=== PATIENT | female | born 1985 | race Caucasian/White ===

== ENCOUNTER 2017-02-05 20:22 | Emergency (ER) | payer SELFPAY ==
[~2017-02-05] VITALS: Ht 152.4 cm; Wt 85.0 kg
[~2017-02-05 20:22] MED LIST: BACTRIM DS1 TAB PO; IBUPROFEN600 MG PO
[2017-02-05] MEDS ORDERED: BACTRIM DS1 TAB PO (21:10)
[2017-02-05] MEDS ORDERED: BENADRY2 EX (21:10)
[2017-02-05 21:15] VITALS: BP 121/74
== END 2017-02-05 21:15 | disposition home or self-care (01) | DRG 607 ==
LOC: ED 20:22
DX: S80.861A Insect bite (nonvenomous), right lower leg, initial encounter (principal); L03.115 Cellulitis of right lower limb; W57.XXXA Bitten or stung by nonvenomous insect and other nonvenomous arthropods, initial encounter

== ENCOUNTER 2018-01-20 07:54 | Emergency (ER) | payer SELFPAY ==
[~2018-01-20] VITALS: Ht 152.4 cm; Wt 90.0 kg
[~2018-01-20 07:54] MED LIST changes: +BENADRY2 EX
[2018-01-20 09:11] LABS: URINE BILIRUBIN - DIPSTICK NEGATIVE (NEGATIVE); URINE BLOOD DIPSTICK NEGATIVE (NEGATIVE); URINE COLOR YELLOW; URINE GLUCOSE - DIPSTICK NEGATIVE (NEGATIVE); URINE KETONE NEGATIVE (NEGATIVE); URINE LEUK ESTERASE NEGATIVE (NEGATIVE); URINE NITRITE - DIPSTICK NEGATIVE (Negative); URINE PROTEIN - DIPSTICK NEGATIVE (NEG-TRACE); URINE SPECIFIC GRAVITY 1.015; URINE UROBILINOGEN - DIPSTICK 0.2 E.U./dL (0.2)
[2018-01-20 09:12] LABS: ALBUMIN 3.6 g/dL (3.2-5.0); ALKALINE PHOSPHATASE 61 u/l (38-126); AMYLASE 45 u/l (30-110); ANION GAP 14 (6-22 (CALC)); BILIRUBIN, TOTAL 0.2 mg/dL (0.0-1.4); BUN 11 mg/dL (7-17); BUN/CREATININE RATIO 17 (12-20 (CALC)); CARBON DIOXIDE 25 mmol/l (22-30); CHLORIDE 107 mmol/l (95-108); CREATININE 0.6 mg/dL (0.5-1.0); GFR > 60 ML/MIN (>=60 (CALC)); GFR FOR AFR.AMER. > 60 ML/MIN (>=60 (CALC)); LIPASE 82 u/l (23-300); POTASSIUM 4.1 mmol/l (3.5-5.1); SGOT/AST 17 u/l (14-36); SGPT/ALT 33 u/l (9-52); SODIUM 142 mmol/l (137-146); TOTAL PROTEIN 6.6 g/dL (6.3-8.2)
[2018-01-20 09:12] LABS: URINE CLARITY CLEAR
[2018-01-20 09:18] LABS: HEMATOCRIT 38.2 % (37.0-47.0); HEMOGLOBIN 12.8 g/dl (12.0-16.0); IMMATURE GRANULOCYTES 0.3 % (0.0-1.0); MEAN CELL VOLUME 90.5 fL CALC (80.0-100.0); MEAN CORPUSCULAR HGB 30.3 pG CALC (26.0-32.0); MEAN CORPUSCULAR HGB CONC 33.5 g/L CALC (32.0-36.0); NEUT# 4.5 thou/uL (2.00-7.15); RED BLOOD COUNT 4.22 mill/uL (4.20-5.60); RED CELL DISTRI WIDTH 12.7 % (11.5-15.5)
[2018-01-20] MEDS ORDERED: ZOFRAN ODT4 MG PO (11:01)
[2018-01-20] MEDS ORDERED: LOMOTIL2.5 MG PO (11:02)
[2018-01-20 11:05] VITALS: BP 122/64
== END 2018-01-20 11:17 | disposition home or self-care (01) | DRG 392 ==
LOC: ED 07:54
PROVIDERS: Emergency Medicine
DX: K52.9 Noninfective gastroenteritis and colitis, unspecified (principal)
CPT/HCPCS: Q9967